=== PATIENT | female | born 1965 | race African-American/Black ===

== ENCOUNTER 2019-03-18 01:23 | Emergency (ER) | payer SELFPAY ==
[~2019-03-18] VITALS: Ht 165.1 cm; Wt 102.1 kg
[~2019-03-18 01:23] MED LIST: ATENOLOL50 MG ORAL; CATAPRES0.2 MG ORAL; CYCLOBENZAPRINE10 MG ORAL; IBUPROFEN800 MG ORAL; ILOTYCIN3.5 GM OP; POTASSIUM CHLO20 ME3 PO
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
[2019-03-18] MEDS ORDERED: NAPROXEN375 M2 ORAL (01:31)
[2019-03-18 01:33] VITALS: BP 108/77
[2019-03-18] MEDS ORDERED: Tetanus/Diptheria/Pertussis IM ONE ×2 (01:45→01:49)
[2019-03-18] MEDS ORDERED: CEPHALEXIN500 MG ORAL (02:02)
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
[2019-03-18 02:05] VITALS: BP 108/77
--- NOTE | 2019-03-18 02:05 | NUR ---
ER DISCHARGE NOTE: Patient is cleared to be discharged per ERMD, pt is aox4, on room air, with stable vital signs. pt was given dc and prescription instructions, pt was able to verbalize understanding, pt id band removed. pt is able to ambulate with steady gait. pt took all belongings.
== END 2019-03-18 02:05 | disposition home or self-care (01) ==
LOC: EMR 01:50
DX: S11.91XA Laceration without foreign body of unspecified part of neck, initial encounter (principal); R58 Hemorrhage, not elsewhere classified; I10 Essential (primary) hypertension; Z88.0 Allergy status to penicillin; X58.XXXA Exposure to other specified factors, initial encounter; Y92.9 Unspecified place or not applicable; Z23 Encounter for immunization
CPT/HCPCS: 90471; 90715; 99283

== ENCOUNTER 2019-06-18 02:49 | Emergency (ER) | payer OTHER ==
[~2019-06-18] VITALS: Ht 165.1 cm; Wt 115.7 kg
[~2019-06-18 02:49] MED LIST changes: +CEPHALEXIN500 MG ORAL; +NAPROXEN375 M2 ORAL
[2019-06-18] MEDS ORDERED: HYDROcodone/Acetamin 10/325 tab ORAL ONE (04:00)
--- NOTE | 2019-06-18 04:16 | NUR ---
[employer] DOWNTIME: For 06/18/2019 From 0200 to 0600 the following electronic documentation will be located in the patient handwritten chart, Following patient discharge, paper documentation will be scanned into [facility] with the remainder of the paper chart. Nursing Documentation Physician orders Medication Administration Records Medication Reconciliation Respiratory Documentation Dietary Documentation Case Management Documentation Developmental Psychologist Documentation
[2019-06-18] MEDS ORDERED: HYDROcodone/Acetamin 10/325 tab ONE (04:21)
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
[2019-06-18 05:03] LABS: APPEARANCE,URINE CLEAR; BILIRUBIN, URINE NEGATIVE (NEGATIVE); COLOR,URINE PALE YELLOW; GLUCOSE, URINE (UA) NEGATIVE (NEGATIVE); KETONES,URINE NEGATIVE (NEGATIVE); NITRITE,URINE NEGATIVE (NEGATIVE); PH,URINE 5 (4.5-8.0); PROTEIN,URINE NEGATIVE (NEGATIVE); UROBILINOGEN,URINE NORMAL MG/DL (0.0-1.0)
[2019-06-18 05:04] LABS: LEUKOCYTE ESTERASE ,URINE NEGATIVE (NEGATIVE)
[2019-06-18] MEDS ORDERED: IBUPROFEN600 MG ORAL (05:19)
[2019-06-18] MEDS ORDERED: ACETAMINOPHEN500 M3 ORAL (05:19)
[2019-06-18 05:30] VITALS: BP 115/69
[2019-06-18 07:01] VITALS: BP 120/74
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
--- NOTE | 2019-06-18 11:01 | Diagnostic Imaging Report ---
INDICATION: Knee Pain COMPARISON: None 3 views of the left knee were obtained. FINDINGS: The views are technically suboptimal. No acute fracture, malalignment, or joint effusion are identified. There is joint space narrowing with marginal osteophyte formation and subchondral sclerosis. Impression: Negative for acute injury. Osteoarthritis
--- NOTE | 2019-06-18 11:01 | Diagnostic Imaging Report ---
Indication: Right knee Pain 3 views of the right knee were obtained. Findings: No acute fracture, malalignment, or joint effusion are identified. There is joint space narrowing with marginal osteophyte formation and subchondral sclerosis. Impression: Negative for acute findings.
== END 2019-06-18 07:00 | disposition home or self-care (01) ==
LOC: EMR 03:19
DX: S16.1XXA Strain of muscle, fascia and tendon at neck level, initial encounter (principal); V43.52XA Car driver injured in collision with other type car in traffic accident, initial encounter; Y92.410 Unspecified street and highway as the place of occurrence of the external cause; I10 Essential (primary) hypertension; M47.812 Spondylosis without myelopathy or radiculopathy, cervical region; R51 Headache; M17.12 Unilateral primary osteoarthritis, left knee; Z88.0 Allergy status to penicillin
CPT/HCPCS: 70450; 72125; 81003; 81025; 99284